=== PATIENT | male | born 1990 | race African-American/Black ===

== ENCOUNTER 2017-07-22 13:32 | Emergency (ER) | payer OTHER ==
[2017-07-22] MEDS: cefTRIAXone SOD 250 MG VIAL (J0696) IM (14:35)
[2017-07-22] MEDS: AZITHROMYCIN 250 MG TAB PO (14:35)
[2017-07-22 16:30] LABS: CHLAMYDIA DNA AMPLIFICATION POSITIVE (NEGATIVE); GC DNA AMPLIFICATION NEGATIVE (NEGATIVE)
== END 2017-07-22 14:57 | disposition home or self-care (01) ==
LOC: M ED 13:32
DX: N34.2 Other urethritis (principal)
CPT/HCPCS: J0696